=== PATIENT | female | born 1950 | race Caucasian/White ===

== ENCOUNTER 2019-05-11 12:31 | Emergency (ER) | payer OTHER ==
[~2019-05-11] VITALS: Ht 167.6 cm; Wt 81.6 kg
[2019-05-11 12:41] VITALS: Ht 167.6 cm; Wt 81.6 kg
[2019-05-11 13:49] VITALS: BP 155/89
== END 2019-05-11 13:49 | disposition other institution (70) ==
LOC: ED 12:31
DX: I10 Essential (primary) hypertension (principal); E11.9 Type 2 diabetes mellitus without complications; Z90.89 Acquired absence of other organs; Z98.890 Other specified postprocedural states; Z90.710 Acquired absence of both cervix and uterus
CPT/HCPCS: 82962

== ENCOUNTER 2019-05-11 12:31 | Emergency (ER) | payer OTHER | END 2019-05-11 13:49 | disposition other institution (70) | LOC: ED 12:31 | DX: Z02.89 Encounter for other administrative examinations (principal) ==